=== PATIENT | male | born 1985 | race Hispanic/Latino ===

== ENCOUNTER 2019-08-24 20:51 | Emergency (ER) | payer OTHER ==
--- NOTE | 2019-08-24 23:56 | Emergency Department Report ---
ED Fall HPI - General Chief Complaint: Fall Stated Complaint: HEAD INJURY/MH EVAL Source: patient, EMS Mode of arrival: Stretcher - History of Present Illness Initial Comments: Per caregiver, patient is a 34-year-old white male with a history of chronic bipolar disorder, schizophrenia, anxiety and PTSD presented to the evening with headache and posterior neck and occipital scalp pain after he is to do and fell down on his back hitting his head against a concrete floor about 1 hour prior to arrival in the ED. Per caregiver, patient did not lose any consciousness, has not had any nausea, vomiting, chest pain, shortness of breath, dizziness, altered mental status, change in vision, lack of appetite, bilateral upper and lower extremity numbness and weakness. The caregiver states that the patient has been acting normally at baseline and has not exhibited any abnormal change in behavior or activity. Patient was brought to the ED for evaluation of any severe brain or head injuries. 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 denies: numbness, weakness, chest paint, shortness of breath, abdominal pain, hematuria, unable to walk, lightheaded, vertigo, confusion - Related Data Allergies Allergy/AdvReac Type Severity Reaction Status Date / Time No Known Allergies Allergy Unverified 08/24/19 23:46 ED Review of Systems ROS: Stated complaint: HEAD INJURY/MH EVAL Other details as noted in HPI Constitutional: denies: chills, fever Eyes: denies: eye pain, eye discharge, vision change ENT: denies: ear pain, throat pain Respiratory: denies: cough, shortness of breath, wheezing Cardiovascular: denies: chest pain, palpitations Endocrine: no symptoms reported Gastrointestinal: denies: abdominal pain, nausea, diarrhea Genitourinary: denies: urgency, dysuria Musculoskeletal: denies: back pain, joint swelling, arthralgia Skin: denies: rash, lesions Neurological: headache. denies: weakness, paresthesias, confusion Psychiatric: anxiety (baseline chronic), depression (baseline chronic) Hematological/Lymphatic: denies: easy bleeding, easy bruising ED Past Medical Hx - Past Medical History Previous Medical History?: Yes Hx Psychiatric Treatment: Yes (Schizphrenia, Bipolar, Depression) - Surgical History Past Surgical History?: Yes Additional Surgical History: hernia - Social History Smoking Status: Never Smoker Substance Use Type: None ED Physical Exam - General Limitations: No Limitations - Head Head exam: Present: other (Palpable occipital scalp tenderness) - Eye Eye exam: Present: normal appearance, PERRL, EOMI Pupils: Present: normal accommodation - ENT ENT exam: Present: normal exam, normal orophraynx, TM's normal bilaterally, normal external ear exam - Neck Neck exam: Present: normal inspection, full ROM. Absent: tenderness, meningismus, lymphadenopathy, thyromegaly - Respiratory Respiratory exam: Present: normal lung sounds bilaterally. Absent: respiratory distress, wheezes, chest wall tenderness, accessory muscle use - Cardiovascular Cardiovascular Exam: Present: normal rhythm, tachycardia, normal heart sounds - GI/Abdominal GI/Abdominal exam: Present: soft, normal bowel sounds. Absent: tenderness, guarding, rebound, rigid, hyperactive bowel sounds, hypoactive bowel sounds, organomegaly, mass - Extremities Exam Extremities exam: Present: normal inspection, full ROM, normal capillary refill - Back Exam Back exam: Present: normal inspection, full ROM. Absent: tenderness, CVA tender ness (R), CVA tenderness (L), muscle spasm, paraspinal tenderness, vertebral tenderness - Neurological Exam Neurological exam: Present: alert, oriented X3, CN II-XII intact, normal gait, reflexes normal - Psychiatric Psychiatric exam: Present: depressed, anxious, flat affect - Skin Skin exam: Present: warm, dry, intact, normal color. Absent: rash ED Course Vital Signs 08/24/19 21:10 Temperature 98.3 F Pulse Rate 116 H Respiratory 24 Rate Blood Pressure 123/64 Blood Pressure 123/64 [Left] O2 Sat by Pulse 95 Oximetry ED Medical Decision Making - Radiology Data Radiology results: report reviewed, image reviewed Findings [facility] [address] [place] [address] Cat Scan Report Signed Patient: WALESKA HAN MR#: [id number] : 1985 Acct:[id number] Age/Sex: 34 / M ADM Date: 08/24/19 Loc: ED Attending Dr: Ordering Physician: LYDIA CORTES Date of Service: 08/24/19 Procedure(s): CT head/brain wo con Accession Number(s): [id number] cc: LYDIA CORTES CT HEAD WITHOUT CONTRAST INDICATION : Head injury after fall. Altered mental status. TECHNIQUE: Axial, coronal and sagittal CT imaging was performed from the skull apex through the skull base without contrast. All CT scans at this location are performed using CT dose reduction for ALARA by means of automated exposure control. COMPARISON: None available. FINDINGS: PARENCHYMA: No mass, midline shift, hemorrhage, extraaxial collection or acute territorial infarction. VENTRICLES: Symmetric and normal in size. SOFT TISSUES: No significant abnormality of the included soft tissues/orbits. BONES: No acute osseous abnormality. SINUSES: No significant abnormality. ADDITIONAL FINDINGS: None. IMPRESSION: No acute intracranial abnormality. Signer Name: Torey Jenkins MD Signed: 08/25/2019 12:12 AM Workstation Name: [id number] Transcribed By: [place] Dictated By: Torey Jenkins MD Electronically Authenticated By: Torey Jenkins MD Signed Date/Time: 08/25/1911 DD/ TD/TT: ----- Findings [facility] [address] [place] [address] Cat Scan Report Signed Patient: WALESKA HAN MR#: [id number] : 1985 Acct:[id number] Age/Sex: 34 / M ADM Date: 08/24/19 Loc: ED Attending Dr: Ordering Physician: LYDIA CORTES Date of Service: 08/24/19 Procedure(s): CT cervical spine wo con Accession Number(s): [id number] cc: LYDIA CORTES CT CERVICAL SPINE WITHOUT CONTRAST INDICATION: Head/neck injury. History of fall. COMPARISON: None available. TECHNIQUE: Axial, coronal and sagittal CT imaging of the cervical spine without contrast was performed. All CT scans at this location are performed using CT dose reduction for ALARA by means of automated exposure control. FINDINGS: VERTEBRAE:No acute fracture. Normal alignment. DISC SPACES: No significant abnormality. FACET JOINTS:No significant abnormality. CENTRAL CANAL: No central canal stenosis or neural foraminal narrowing. SOFT TISSUES:No significant abnormality. LUNG APICES: No significant abnormality. ADDITIONAL FINDINGS: None IMPRESSION: No acute abnormality of the cervical spine. Signer Name: Torey Jenkins MD Signed: 08/25/2019 12:10 AM Workstation Name: [id number] Transcribed By: MN Dictated By: Torey Jenkins MD Electronically Authenticated By: Torey Jenkins MD Signed Date/Time: 08/25/199 DD/ 0008 TD/TT: - Medical Decision Making This is a 34-year-old white male with a history of chronic bipolar disorder, schizophrenia, PTSD, anxiety and depression who presented to the ED with persistent headache, neck pain on occipital scalp pain after he deliberately fell backwards on the concrete floor at a behavioral facility where he is currently residing. In the ED, patient is alert and oriented 3 and is not in distress, resting comfortably in the bed, groggy but arousable. Patient was treated in the ED with Geodon after he started becoming agitated and restless. Head CT scan without contrast shows no acute intracranial abnormalities or hemorrhage. C-spine CT scan without contrast shows no acute cervical disc fractures or subluxations. Patient was discharged back [facility] EMS and the caregiver was advised of the patient return to the ED immediately if symptoms get worse otherwise follow-up with his primary care physician in 5-7 days for reevaluation. - Differential Diagnosis Head injury; scalp contusion; cervical sprain; cervical disc fracture Critical care attestation.: If time is entered above; I have spent that time in minutes in the direct care of this critically ill patient, excluding procedure time. ED Disposition Clinical Impression: Contusion of scalp Qualifiers: Encounter type: initial encounter Qualified Code(s): S00.03XA - Contusion of scalp, initial encounter Closed head injury with concussion Qualifiers: Encounter type: initial encounter Loss of consciousness presence/duration: without LOC Qualified Code(s): S06.0X0A - Concussion without loss of consciousness, initial encounter Acute cervical sprain Qualifiers: Encounter type: initial encounter Qualified Code(s): S13.9XXA - Sprain of joints and ligaments of unspecified parts of neck, initial encounter Disposition: TO HOME OR SELFCARE Is pt being admited?: No Does the pt Need Aspirin: No Condition: Stable Instructions: Concussion (ED), Minor Head Injury (ED), Cervical Sprain (ED) Additional Instructions: Taking regular medications for pain as needed, drink plenty of fluids and follow-up with primary care physician in 5-7 days for reevaluation. Return to the ED immediately if symptoms get worse. Referrals: JAYLAN THOMPSON MD [Primary Care Provider] - 3-5 Days Time of Disposition: 02:18 Print Language: KISWAHILI
[2019-08-24] MEDS ORDERED: LORazepam 1 MG TAB PO ONE (23:58)
--- NOTE | 2019-08-25 00:14 | Cat Scan Report ---
CT CERVICAL SPINE WITHOUT CONTRAST INDICATION: Head/neck injury. History of fall. COMPARISON: None available. TECHNIQUE: Axial, coronal and sagittal CT imaging of the cervical spine without contrast was performe d. All CT scans at this location are performed using CT dose reduction for ALARA by means of automat ed exposure control. FINDINGS: VERTEBRAE:No acute fracture. Normal alignment. DISC SPACES: No significant abnormality. FACET JOINTS:No significant abnormality. CENTRAL CANAL: No central canal stenosis or neural foraminal narrowing. SOFT TISSUES:No significant abnormality. LUNG APICES: No significant abnormality. ADDITIONAL FINDINGS: None IMPRESSION: No acute abnormality of the cervical spine. Signer Name: Torey Jenkins MD Signed: 08/25/2019 12:10 AM Workstation Name: [id number]
--- NOTE | 2019-08-25 00:17 | Cat Scan Report ---
CT HEAD WITHOUT CONTRAST INDICATION : Head injury after fall. Altered mental status. TECHNIQUE: Axial, coronal and sagittal CT imaging was performed from the skull apex through the skul l base without contrast. All CT scans at this location are performed using CT dose reduction for ALA RA by means of automated exposure control. COMPARISON: None available. FINDINGS: PARENCHYMA: No mass, midline shift, hemorrhage, extraaxial collection or acute territorial infarctio n. VENTRICLES: Symmetric and normal in size. SOFT TISSUES: No significant abnormality of the included soft tissues/orbits. BONES: No acute osseous abnormality. SINUSES: No significant abnormality. ADDITIONAL FINDINGS: None. IMPRESSION: No acute intracranial abnormality. Signer Name: Torey Jenkins MD Signed: 08/25/2019 12:12 AM Workstation Name: [email or web address]
[2019-08-25] MEDS ORDERED: ZIPRASIDONE MESYLATE 20 MG VIAL IM ONE (00:53)
[2019-08-25] MEDS ORDERED: WATER FOR INJ Sterile (PF) 10 ML ONE (01:05)
[2019-08-25 02:32] VITALS: BP 121/69
== END 2019-08-25 05:00 | disposition home or self-care (01) ==
LOC: ED 20:51
DX: S00.03XA Contusion of scalp, initial encounter (principal); S13.4XXA Sprain of ligaments of cervical spine, initial encounter; F25.0 Schizoaffective disorder, bipolar type; F32.9 Major depressive disorder, single episode, unspecified; Z98.890 Other specified postprocedural states; W19.XXXA Unspecified fall, initial encounter; Y93.9 Activity, unspecified; Y92.009 Unspecified place in unspecified non-institutional (private) residence as the place of occurrence of the external cause; Y99.9 Unspecified external cause status
CPT/HCPCS: 70450; 72125; 96372; 99284; J3486